=== PATIENT | female | born 1950 | race Caucasian/White ===

== ENCOUNTER 2016-05-15 08:26 | Observation (INO) | payer MEDICARE ==
[2016-05-15] MEDS ORDERED: LORazepam INJ* 2 MG/ML 1 ML VIAL ONE (08:44)
[2016-05-15] MEDS ORDERED: LORazepam INJ* 2 MG/ML 1 ML VIAL IV ONE (08:45)
[2016-05-15] MEDS: NS 0.9% 1000 ML* 1,000 ML IV SCH ×2 (08:57→17:49)
[2016-05-15 09:18] LABS: Hematocrit 44 % (35-47); Hemoglobin 15.3 g/dl (12.0-16.0); Mean Corpuscular HGB Conc 35 g/dl (31-36); Mean Corpuscular Hemoglobin 30 pg (27-31); Mean Corpuscular Volume 87 fL (80-97); Mean Platelet Volume 8 um3 (7.4-10.4); Red Blood Count 5.09 10^6/ul (4.0-5.4); Red Cell Distribution Width 14 % (10.5-15); White Blood Count 7.6 10^3/ul (3.5-10.8)
[2016-05-15 09:32] LABS: Ammonia 30 mol/L (16-53)
[2016-05-15 09:34] LABS: BUN/Creatinine Ratio 15.4 (8-20); C Reactive Protein 54.08 mg/L (< 5.00); EGFR Non-African American 91.8 (>60); Globulin 2.7 g/dL (2-4); Potassium 3.6 mmol/L (3.5-5.0); Total Bilirubin 0.4 mg/dL (0.2-1.0); Total Protein 6.7 g/dL (6.4-8.9)
[2016-05-15 09:36] LABS: Troponin I 0.02 ng/mL (<0.04)
[2016-05-15 09:37] LABS: B Type Natriuretic Peptide 20 pg/mL
[2016-05-15] MEDS ORDERED: Lacosamide TAB* 100 MG TAB PO ONE (10:05)
[2016-05-15] MEDS ORDERED: levETIRAcetam TAB* 500 MG PO ONE (10:05)
[2016-05-15] MEDS ORDERED: carBAMazepine TAB(*) 200 MG PO ONE (10:07)
[2016-05-15 10:15] LABS: TSH (Thyroid Stimulating Horm) 1.04 mcIU/mL (0.34-5.60)
[2016-05-15 10:38] LABS: Carbamazepine 4.5 mcg/mL (4.0-12.0)
[2016-05-15] MEDS ORDERED: LaCOSAMide TAB* 150 MG TAB PO ONE (11:00)
[2016-05-15 12:07] LABS: Urine Bacteria Absent (Absent); Urine Bilirubin Negative (Negative); Urine Glucose Negative (Negative); Urine Nitrite Negative (Negative)
[2016-05-15] MEDS ORDERED: Lacosamide TAB* 50 MG TAB PO ONE (12:55)
--- NOTE | 2016-05-15 13:46 | ED ---
Luis Alberto Tariq Adam, scribed for Maciej Ruelas MD on 05/15/16 at 0847 . Neurological HPI - HPI Summary HPI Summary: Patient is a 66 y/o female who presents to the [facility] with a seizure lasting 20- 30seconds per EMS. Pt was having a sz in the exam room (lasting approximately 15sec) at 0842. She has a Hx of seizures and is on Vimpat (per EMR). PMHx also includes anxiety and hypothyroidism. - History of Current Complaint Chief Complaint: EDSeizure Stated Complaint: SEIZURES Time Seen by Provider: 05/15/16 08:34 Hx Obtained From: EMS Hx From Patient Unobtainable Due To: Other - Seizure Onset/Duration: Sudden Onset, Started hours ago, Still Present Timing: Intermittent Episodes Lasting: - 15-30 seconds Onset Severity: Moderate Current Severity: Moderate Seizure Severity: Moderate Number of Seizures: 2 Neurological Deficit Location: Facial Seizure Character: Partial (Specify) - Facial twitching Aggravating: Unknown Alleviating: Spontanious Resolution - Allergy/Home Medications Allergies/Adverse Reactions: Allergies Allergy/AdvReac Type Severity Reaction Status Date / Time Amoxicillin Allergy Severe Swelling Verified 08/18/12 09:04 Of Face,Lips,& Throat Ampicillin Allergy Severe Swelling Verified 08/18/12 09:04 Of Face,Lips,& Throat Phenacemide [From Phenurone] Allergy Unknown Unknown Verified 08/18/12 09:05 Reaction Details PMH/Surg Hx/FS Hx/Imm Hx Endocrine/Hematology History: Reports: Hx Thyroid Disease Denies: Hx Diabetes Cardiovascular History: Denies: Hx Hypertension Respiratory History: Denies: Hx Asthma, Hx Chronic Obstructive Pulmonary Disease (COPD) GI History: Denies: Hx Ulcer Musculoskeletal History: Denies: Hx Osteoporosis - Surgical History Surgery Procedure, Year, and Place: Brain surgery after an accident 1974 Infectious Disease History: Denies: Hx Hepatitis, Hx Human Immunodeficiency Virus (HIV) - Family History Known Family History: Positive: Other - Breast CA - Social History Occupation: Retired Lives: [facility] Hx Substance Use: No Substance Use Type: Reports: None Review of Systems Constitutional: Negative Negative: Fever Neurological: Other - Seizures All Other Systems Reviewed And Are Negative: Yes Physical Exam Triage Information Reviewed: Yes Vital Signs On Initial Exam: Initial Vitals Resp 16 05/15/16 08:51 Vital Signs Reviewed: Yes Appearance: Positive: Well-Appearing, No Pain Distress Skin: Positive: Warm, Skin Color Reflects Adequate Perfusion, Dry Head/Face: Positive: Normal Head/Face Inspection Eyes: Positive: EOMI, KIERA ENT: Positive: Normal ENT inspection Neck: Positive: Supple, Nontender Respiratory/Lung Sounds: Positive: Clear to Auscultation, Breath Sounds Present Cardiovascular: Positive: RRR Abdomen Description: Positive: Nontender, Soft Bowel Sounds: Positive: Present Musculoskeletal: Positive: Normal, Strength/ROM Intact - Moves all extremities Neurological: Positive: Other - Seizure lasting 15 seconds: Facial twitching, eye and head deviation to the right. Post-ictal, confused. Psychiatric: Positive: Affect/Mood Appropriate Diagnostics - Vital Signs Vital Signs Temp Pulse Resp BP Pulse Ox 05/15/16 09:00 99.2 F 97 16 129/65 100 05/15/16 08:51 16 - Laboratory Lab Results: Lab Results 05/15/16 05/15/16 05/15/16 Range/Units 09:09 09:09 09:09 WBC 7.6 (3.5-10.8) 10^3/ul RBC 5.09 (4.0-5.4) 10^6/ul Hgb 15.3 (12.0-16.0) g/dl Hct 44 (35-47) % MCV 87 (80-97) fL MCH 30 (27-31) pg MCHC 35 (31-36) g/dl RDW 14 (10.5-15) % Plt Count 213 (150-450) 10^3/ul MPV 8 (7.4-10.4) um3 Neut % (Auto) 91.4 H (38-83) % Lymph % (Auto) 3.3 L (25-47) % [place] % (Auto) 5.0 (1-9) % Eos % (Auto) 0.1 (0-6) % Baso % (Auto) 0.2 (0-2) % Absolute Neuts (auto) 7.0 (1.5-7.7) 10^3/ul Absolute Lymphs (auto) 0.2 L (1.0-4.8) 10^3/ul Absolute Monos (auto) 0.4 (0-0.8) 10^3/ul Absolute Eos (auto) 0 (0-0.6) 10^3/ul Absolute Basos (auto) 0 (0-0.2) 10^3/ul Absolute Nucleated RBC 0 10^3/ul Nucleated RBC % 0 INR (Anticoag Therapy) 0.93 (0.89-1.11) APTT 30.9 (26.0-36.3) seconds Sodium 127 L (133-145) mmol/L Potassium 3.6 (3.5-5.0) mmol/L Chloride 93 L (101-111) mmol/L Carbon Dioxide 25 (22-32) mmol/L Anion Gap 9 (2-11) mmol/L BUN 10 (6-24) mg/dL Creatinine 0.65 (0.51-0.95) mg/dL Est GFR ( Amer) 118.0 (>60) Est GFR (Non-Af Amer) 91.8 (>60) BUN/Creatinine Ratio 15.4 (8-20) Glucose 117 H (70-100) mg/dL Lactic Acid (0.5-2.0) mmol/L Calcium 9.0 (8.6-10.3) mg/dL Magnesium 2.0 (1.9-2.7) mg/dL Total Bilirubin 0.40 (0.2-1.0) mg/dL AST 15 (13-39) U/L ALT 13 (7-52) U/L Alkaline Phosphatase 156 H (34-104) U/L Ammonia (16-53) mol/L Total Creatine Kinase 53 (10-223) U/L CK-MB (CK-2) 1.4 (0.6-6.3) ng/mL Troponin I 0.02 (<0.04) ng/mL C-Reactive Protein 54.08 H (< 5.00) mg/L B-Natriuretic Peptide ( - 100) pg/mL Total Protein 6.7 (6.4-8.9) g/dL Albumin 4.0 (3.2-5.2) g/dL Globulin 2.7 (2-4) g/dL Albumin/Globulin Ratio 1.5 (1-3) Lipase 13 (11.0-82.0) U/L TSH 1.04 (0.34-5.60) mcIU/mL Urine Color Urine Appearance Urine pH (5-9) Ur Specific [place] (1.010-1.030) Urine Protein (Negative) Urine Ketones (Negative) Urine Blood (Negative) Urine Nitrate (Negative) Urine Bilirubin (Negative) Urine Urobilinogen (Negative) Ur Leukocyte Esterase (Negative) Urine WBC (Auto) (Absent) Urine RBC (Auto) (Absent) Ur Squamous Epith Cells (Absent) Urine Bacteria (Absent) Hyaline Casts (Absent) Urine Glucose (Negative) Urine Ascorbic Acid (Negative) Carbamazepine 4.5 (4.0-12.0) mcg/mL 05/15/16 05/15/16 05/15/16 Range/Units 09:09 09:09 11:54 WBC (3.5-10.8) 10^3/ul RBC (4.0-5.4) 10^6/ul Hgb (12.0-16.0) g/dl Hct (35-47) % MCV (80-97) fL MCH (27-31) pg MCHC (31-36) g/dl RDW (10.5-15) % Plt Count (150-450) 10^3/ul MPV (7.4-10.4) um3 Neut % (Auto) (38-83) % Lymph % (Auto) (25-47) % [place] % (Auto) (1-9) % Eos % (Auto) (0-6) % Baso % (Auto) (0-2) % Absolute Neuts (auto) (1.5-7.7) 10^3/ul Absolute Lymphs (auto) (1.0-4.8) 10^3/ul Absolute Monos (auto) (0-0.8) 10^3/ul Absolute Eos (auto) (0-0.6) 10^3/ul Absolute Basos (auto) (0-0.2) 10^3/ul Absolute Nucleated RBC 10^3/ul Nucleated RBC % INR (Anticoag Therapy) (0.89-1.11) APTT (26.0-36.3) seconds Sodium (133-145) mmol/L Potassium (3.5-5.0) mmol/L Chloride (101-111) mmol/L Carbon Dioxide (22-32) mmol/L Anion Gap (2-11) mmol/L BUN (6-24) mg/dL Creatinine (0.51-0.95) mg/dL Est GFR ( Amer) (>60) Est GFR (Non-Af Amer) (>60) BUN/Creatinine Ratio (8-20) Glucose (70-100) mg/dL Lactic Acid 3.7 H* (0.5-2.0) mmol/L Calcium (8.6-10.3) mg/dL Magnesium (1.9-2.7) mg/dL Total Bilirubin (0.2-1.0) mg/dL AST (13-39) U/L ALT (7-52) U/L Alkaline Phosphatase (34-104) U/L Ammonia 30 (16-53) mol/L Total Creatine Kinase (10-223) U/L CK-MB (CK-2) (0.6-6.3) ng/mL Troponin I (<0.04) ng/mL C-Reactive Protein (< 5.00) mg/L B-Natriuretic Peptide 20 ( - 100) pg/mL Total Protein (6.4-8.9) g/dL Albumin (3.2-5.2) g/dL Globulin (2-4) g/dL Albumin/Globulin Ratio (1-3) Lipase (11.0-82.0) U/L TSH (0.34-5.60) mcIU/mL Urine Color Yellow Urine Appearance Cloudy Urine pH 6.0 (5-9) Ur Specific [place] 1.020 (1.010-1.030) Urine Protein 1+(30 mg/dl) H (Negative) Urine Ketones Negative (Negative) Urine Blood Negative (Negative) Urine Nitrate Negative (Negative) Urine Bilirubin Negative (Negative) Urine Urobilinogen Negative (Negative) Ur Leukocyte Esterase Negative (Negative) Urine WBC (Auto) Trace(0-5/hpf) (Absent) Urine RBC (Auto) 1+(3-5/hpf) H (Absent) Ur Squamous Epith Cells Present H (Absent) Urine Bacteria Absent (Absent) Hyaline Casts Present H (Absent) Urine Glucose Negative (Negative) Urine Ascorbic Acid * H (Negative) Carbamazepine (4.0-12.0) mcg/mL Result Diagrams: 05/15/16 09:09 05/15/16 09:09 Lab Statement: Any lab studies that have been ordered have been reviewed, and results considered in the medical decision making process. - EKG 08:32 Cardiac Rate: NL - [address] Segment: Normal Ectopy: None - Additional Comments Diagnostic Additional Comments: Troponin I - 0.02 Lactic Acid - 3.7 Course/Dx - Course Assessment/Plan: patient had one seizure at dinner, 05/14/16. Today she had a seizure when medications were being dispensed (she did not get her am meds), another seizure in the ambulance and a third in the ED. In the ED, She got ativan 1mg iv,vimpat 150mg po, keppra 1000mg po and carbamazepine 200mg po. After discussion with Dr Lee, the vimpat will be increased to 100mg po bid to be started tomorrow am, 05/16/16. She received another dose of 50mg of po vimpat in the ED. This was all discussed with the patient and her son. Discharge home stable. - Diagnoses Provider Diagnoses: Seizure Discharge - Discharge Plan Condition: Stable Disposition: HOME Prescriptions: Lacosamide TAB* [Vimpat TAB*] 100 mg PO BID #60 tab MDD 200 Patient Education Materials: Epilepsy (ED) Referrals: Iain Gaytan MD [Primary Care Provider] - Additional Instructions: INCREASE YOUR DOSE OF VIMPAT TO 100MG TWICE A DAY. FOLLOW UP WITH YOUR NEUROLOGIST. RETURN TO THE EMERGENCY DEPARTMENT FOR ANY WORSENING OF YOUR CONDITION OR QUESTIONS OR CONCERNS. The documentation as recorded by the Luis Alberto hernandez Adam accurately reflects the service I personally performed and the decisions made by me, Maciej Ruelas MD.
--- NOTE | 2016-05-15 14:12 | ED ---
Progress - Progress Note Progress Note: AFTER DISCUSSION WITH SON, THERE IS A CONCERN OF PATIENT'S SAFETY AT HER INDEPENDENT LIVING. ADMIT HOSPITALIST STABLE. Course/Dx - Diagnoses Provider Diagnoses: Seizure
[2016-05-15] MEDS ORDERED: NS 0.9% 1000 ML* 1,000 ML IV ONE (14:17)
[2016-05-15] MEDS ORDERED: Ondansetron INJ* 2 MG/ML VIAL IV PRN (14:17)
[2016-05-15] MEDS ORDERED: Benzonatate CAP* 100 MG PO PRN (14:19)
[2016-05-15] MEDS ORDERED: Loperamide CAP* 2 MG PO PRN (14:19)
[2016-05-15] MEDS ORDERED: Acetaminophen TAB* 325 MG PO PRN (14:19)
[2016-05-15] MEDS ORDERED: levETIRAcetam TAB* 500 MG PO SCH (18:00)
[2016-05-15] MEDS: carBAMazepine ER TAB(*) 200 MG PO SCH (21:55)
[2016-05-15] MEDS: Lacosamide TAB* 100 MG TAB PO SCH (21:55)
--- NOTE | 2016-05-15 23:06 | HP ---
HISTORY AND PHYSICAL: DATE OF ADMISSION: 05/15/16 PRIMARY CARE PROVIDER: Iain Gaytan MD CONSULTING NEUROLOGISTS: 1. Baldev Lee MD 2. Oneida Guy MD CHIEF COMPLAINT: Recurrent seizures. HISTORY OF PRESENT ILLNESS: Ms. Cardoza is a pleasant 66-year-old woman who came to the [facility] with several seizures lasting 20 to 30 seconds. The patient continued to have a seizure in the ambulance and then another seizure in the emergency room. The patient has a history of seizures for many years. She is under the care of Dr. Oneida Guy. I believe there was a medication change with specific decreased in Vimpat to 150 mg by mouth once daily. The patient is also on Tegretol and Keppra. I believe her Keppra dose is 2500 mg daily with 2 doses daily; one of 1000 mg and the other one of 1500 mg. Her Tegretol is 200 mg by mouth [address] Maciej Ruelas, the ED provider, spoke with Dr. Lee over the telephone, who increased her Vimpat. The patient did receive Ativan in the emergency room. The patient was recommended for discharge , but there was concern by the patient's brother, who was concerned that her independent living situation at [place] was insufficient with respect to monitoring. The hospital service was contacted for observation and we agreed to observe her overnight with seizure precautions to ensure that she is stable for being discharged to an independent setting. PAST MEDICAL HISTORY: 1. Anxiety. 2. Hypothyroidism. OUTPATIENT MEDICATIONS: 1. Multivitamin 1 tablet by mouth twice daily. 2. Acetaminophen 650 mg by mouth every 4 hours as needed for pain/fevers. 3. Tessalon Perles 100 mg by mouth 3 times daily as needed. 4. Vimpat (lacosamide) 150 mg by mouth daily (A RECENT DECREASE) 5. Levothyroxine 75 mcg daily. 6. Loperamide 2 tabs twice daily as needed for loose stools. 7. Zoloft (sertraline) 50 mg by mouth daily. 8. Tegretol XR 200 mg by mouth 3 times daily. 9. Keppra (levetiracetam) 1000 mg by mouth in the morning and 1500 mg by mouth in the evening. ALLERGIES: AMOXICILLIN, AMPICILLIN, and PHENACEMIDE. FAMILY HISTORY: Reviewed, but noncontributory based on the current presentation. REVIEW OF SYSTEMS: Fourteen-system review of systems was accomplished at the bedside without pertinent positives other than what is mentioned in the HPI, all other systems were negative. PHYSICAL EXAMINATION GENERAL APPEARANCE: An elderly woman, appears stated age, in no apparent distress. She is slightly lethargic relative to her baseline. This is as per the , although she has answered questions appropriately. VITAL SIGNS: On admission, temperature 99.2 Fahrenheit, pulse 97, respirations rate 16, oxygen saturation 100% on room air, and blood pressure 129/65. HEENT: Oropharynx is clear. Mucous membranes are moist. NECK: Supple. No bruits appreciated. Midline trachea. Normal thyroid. CHEST: Clear breath sounds anteriorly and posteriorly. HEART: Regular rate and rhythm. No murmurs, rubs, or gallops. ABDOMEN: Soft and nontender. NEURO: No focal weakness or sensory loss. PSYCH: Normal affect. No acute anxiety or depression noted in my conversion. SKIN: Dry and intact. LYMPHS: No adenopathy appreciated. ADMISSION DATA: CBC was normal. INR was unremarkable. Blood chemistry is significant for hyponatremia with a sodium of 127, potassium 3.6, chloride 93, bicarb 25, BUN 10, creatinine 0.6, glucose 117, and lactic acid 3.7 (post seizure). Calcium and magnesium are normal as are the LFTs except for modestly elevated alk phos of 156, ammonia of 30, and total CK 53. Troponin 0.02. CRP elevated at 54. Urinalysis abnormal, but does not suggest the UTI with urine proteins 1+ by dip, urine rbc's 1+ by microscopy, and hyaline casts present as well as urine ascorbic acid present. Toxicology reveals a carbamazepine level of 4.5. IMPRESSION: Ms. Cardoza is a 66-year-old woman who has longstanding seizures, had her seizure medication adjusted with the occurrence of more frequent seizures than is customary for her. Her seizure medication regimen was adjusted by [employer] consultant, Dr. Baldev Lee, but the patient is in a tenuous living situation and it would be proper to observe the patient for resolution of her seizures with this adjusted regimen before discharge. Accordingly, the patient is being placed on observation status. She will be kept on seizure precautions and we will continue all her medications as detailed above and she will be reevaluated in the morning with the intention of discharge at this point. TIME SPENT: Total time taken to admit Mr. Cardoza was 65 minutes, greater than half the time was spent going over the admission history and physical with the patient and discussing the plan of care with the patient's brother. CC: Dr. Gaytan; Dr. Lee; Dr. Guy * [id number]/[facility] #: [id number] MTDD
[2016-05-16] MEDS: NS 0.9% 1000 ML* 1,000 ML IV SCH (04:26)
[2016-05-16] MEDS ORDERED: Levothyroxine TAB* 75 MCG TAB PO SCH (06:00)
[2016-05-16 06:27] LABS: Hematocrit 39 % (35-47); Hemoglobin 13.3 g/dl (12.0-16.0); Mean Corpuscular HGB Conc 34 g/dl (31-36); Mean Corpuscular Hemoglobin 30 pg (27-31); Mean Corpuscular Volume 88 fL (80-97); Mean Platelet Volume 8 um3 (7.4-10.4); Red Blood Count 4.47 10^6/ul (4.0-5.4); Red Cell Distribution Width 14 % (10.5-15); White Blood Count 4.7 10^3/ul (3.5-10.8)
[2016-05-16 07:00] LABS: BUN/Creatinine Ratio 13.3 (8-20); EGFR African American 180.4 (>60); EGFR Non-African American 140.3 (>60); Potassium 3.6 mmol/L (3.5-5.0)
[2016-05-16] MEDS ORDERED: LaCOSAMide TAB* 150 MG TAB PO SCH (09:00)
[2016-05-16] MEDS ORDERED: levETIRAcetam TAB* 500 MG PO SCH (09:00)
[2016-05-16] MEDS ORDERED: Sertraline* 50 MG TAB PO SCH (09:00)
[2016-05-16] MEDS: carBAMazepine ER TAB(*) 200 MG PO SCH (09:44)
[2016-05-16] MEDS: Lacosamide TAB* 100 MG TAB PO SCH (09:45)
[2016-05-16 10:46] VITALS: BP 120/63
[2016-05-16 18:03] LABS: Levetiracetam 2.4 mcg/mL
--- NOTE | 2016-05-17 13:02 | DS ---
DISCHARGE SUMMARY: DATE OF ADMISSION: 05/15/16 DATE OF DISCHARGE: 05/16/16 PRIMARY CARE: Iain Gaytan MD. STATUS DURING HOSPITALIZATION: Observation. DISCHARGE DIAGNOSIS: Recurrent seizure secondary to medication regimen adjustment with church of effective regimen and no seizures overnight. DISCHARGE MEDICATIONS: 1. Multivitamin 1 tablet by mouth twice daily. 2. Acetaminophen 650 mg by mouth every 4 hours as needed for pain/fevers. 3. Tessalon Perles 100 mg by mouth 3 times daily as needed. 4. Vimpat (lacosamide) 200 mg by mouth daily (100 b.i.d.) 5. Levothyroxine 75 mcg daily. 6. Loperamide 2 tabs twice daily as needed for loose stools. 7. Zoloft/sertraline 50 mg by mouth daily. 8. Tegretol XR 200 mg by mouth 3 times daily. 9. Keppra (levetiracetam) 1000 mg by mouth in the morning and 1500 mg by mouth in the evening. HISTORY OF PRESENT ILLNESS AND HOSPITAL COURSE: Please see my H and P describing how the patient is a 66-year-old woman with known epilepsy who had an increasing frequency of seizures in response to a decrease (this is the thought) in her Vimpat. The patient was advised by neurology to increase her Vimpat, but there was concerned about the patient's stability and so she was placed on observation status overnight to ensure she was not having continued frequent seizures as she did on presentation. The patient indeed had no seizures overnight and was stable for discharge in the morning on the discharge regimen above. This was communicated with the patient's brother and she is being discharged back to [place]. TIME SPENT: Total time taken to discharge Ms. Cardoza was 30 minutes, greater than half the time was spent going over the discharge instructions. The patient was given return to ED instructions, but if she has frequent seizure reoccurrences she should contact her neurologist or come directly back to the emergency room. CONDITION AT DISCHARGE: Stable. She is to follow up next week with Dr. Guy or associate at [facility] and also with Dr. Gaytan as per her usual schedule. CC: Dr. Gaytan * [id number]/[facility] #: [id number] [facility]
[2016-05-17 21:06] LABS: Lacosamide 0.8 mcg/mL (1.0 - 10.0)
== END 2016-05-16 10:50 | disposition home or self-care (01) ==
LOC: ED 08:26 → MED 14:05
PROVIDERS: ADMIT Internal Medicine; ATTEND Internal Medicine
DX: G40.509 Epileptic seizures related to external causes, not intractable, without status epilepticus (principal); G40.909 Epilepsy, unspecified, not intractable, without status epilepticus; E03.9 Hypothyroidism, unspecified; F41.9 Anxiety disorder, unspecified; Z88.1 Allergy status to other antibiotic agents; Z23 Encounter for immunization
CPT/HCPCS: 36415; 80048; 80053; 80156; 80177; 80299; 81003; 81015; 82140; 82550; 82553; 83605; 83690; 83735; 83880; 84443; 84484; 85025; 85610; 85730; 86140; 93005; 96374; 96375; 99283; 99406; A9270-GY; G0378; J2060

== ENCOUNTER 2017-03-08 14:26 | Emergency (ER) | payer MEDICARE ==
[2017-03-08] MEDS ORDERED: Tetan/Diph/Pertus SYR(Tdap)* 0.5 ML SYR(BOOSTRIX) use SYR IM ONE (14:52)
--- NOTE | 2017-03-08 15:32 | RAD ---
INDICATION: Head injury. COMPARISON: Comparison is made with a prior CT of the brain from June 09, 2016. TECHNIQUE: Contiguous axial sections of the brain were obtained from the skull base to the vertex without contrast. FINDINGS: The ventricles, cisterns and sulci are enlarged consistent with diffuse atrophy. There is a focal area of encephalomalacia present in the left frontal and temporal lobes which is unchanged from the prior study. No other focal abnormality is or mass effect are seen. There is no evidence for hemorrhage. The patient is status post left frontal craniotomy. There is focal soft tissue swelling and air within the soft tissues anterior to the right frontal bone. There appears to be a small hematoma present measuring 4.0 x 0.6 cm in size. No fracture is seen. The visualized portion of the paranasal sinuses and mastoid air cells appear clear. IMPRESSION: 1. NO EVIDENCE FOR ACUTE INTRACRANIAL ABNORMALITY. 2. SMALL HEMATOMA ANTERIOR TO THE RIGHT FRONTAL BONE. NO FRACTURE IS SEEN. THERE IS AIR PRESENT SUGGESTIVE OF A LACERATION TYPE INJURY. 3. POSTSURGICAL CHANGES AND LEFT FRONTAL AND TEMPORAL ENCEPHALOMALACIA, UNCHANGED.
--- NOTE | 2017-03-08 15:38 | RAD ---
INDICATION: Facial trauma. COMPARISON: There are no prior studies available for comparison. TECHNIQUE: Contiguous axial sections of the axial images of the facial bones were obtained and reconstructed in the coronal and sagittal planes. FINDINGS: Soft tissue swelling is noted anterior to the right frontal bone and orbit. There is a small hematoma present anterior to the frontal bone measuring 4.6 x 0.7 cm in size. The pierce of the orbits and maxillary sinuses appear intact. The zygomatic arches appear intact. There is no evidence for a fracture of the mandible. The nasal bones appear intact. There is mild to moderate deviation of the nasal septum convex toward the left along its superior portion and toward the right along its inferior portion. The pterygoid plates appear intact. The paranasal sinuses appear clear. IMPRESSION: THERE IS SOFT TISSUE SWELLING ANTERIOR TO THE RIGHT ORBIT AND FRONTAL BONE. THERE IS A SMALL HEMATOMA ANTERIOR TO THE FRONTAL BONE. NO FRACTURE IS SEEN.
[2017-03-08 18:59] VITALS: BP 137/59
--- NOTE | 2017-03-13 18:35 | ED ---
Krystin Tariq Alfonso, scribed for Amado Leyva MD on 03/08/17 at 1449 . Adult Trauma - HPI Summary HPI Summary: This patient is a 67 year old F BIBA to [facility] s/p a mechanical fall earlier today while on the sidewalk about to smoke a cigarette. The patient rates the pain 8/10 in severity. Symptoms aggravated by nothing. Patient reports head trauma (wound bandaged by EMS). Patient denies LOC, and pain including neck pain , LE pain, hip pain, abdominal pain, CP, wrist pain, and shoulder pain. - History of Current Complaint Chief Complaint: EDHeadInjury Stated Complaint: FALL HEAD LAC Time Seen by Provider: 03/08/17 14:39 Hx Obtained From: Patient Mechanism of Injury: Fall Loss of Consciousness: no loss of consciousness Onset/Duration: Traumatic Onset of Pain: Post Accident Current Severity: Moderate Pain Intensity: 8 Pain Scale Used: 0-10 Numeric Location: Head Aggravating Factor(s): Nothing Associated Signs & Symptoms: Positive: Other: - head trauma (wound bandaged by EMS). Patient denies LOC, and pain including neck pain, LE pain, hip pain, abdominal pain, CP, wrist pain, and shoulder pain. - Additional Pertinent History Primary Care Physician: [id number] - Allergy/Home Medications Allergies/Adverse Reactions: Allergies Allergy/AdvReac Type Severity Reaction Status Date / Time Amoxicillin Allergy Severe Swelling Verified 08/18/12 09:04 Of Face,Lips,& Throat Ampicillin Allergy Severe Swelling Verified 08/18/12 09:04 Of Face,Lips,& Throat Phenacemide [From Phenurone] Allergy Unknown Unknown Verified 08/18/12 09:05 Reaction Details PMH/Surg Hx/FS Hx/Imm Hx Endocrine/Hematology History: Reports: Hx Thyroid Disease Denies: Hx Diabetes Cardiovascular History: Denies: Hx Hypertension Respiratory History: Denies: Hx Asthma, Hx Chronic Obstructive Pulmonary Disease (COPD) GI History: Denies: Hx Ulcer Musculoskeletal History: Denies: Hx Osteoporosis Sensory History: Reports: Hx Contacts or Glasses Opthamlomology History: Reports: Hx Contacts or Glasses Neurological History: Reports: Hx Seizures - Surgical History Surgery Procedure, Year, and Place: Brain surgery after an accident 1974 Infectious Disease History: No Infectious Disease History: Denies: Hx Hepatitis, Hx Human Immunodeficiency Virus (HIV), Traveled Outside the [place] in Last 30 Days - Family History Known Family History: Positive: Other - Breast CA - Social History Alcohol Use: None Hx Substance Use: No Substance Use Type: Reports: None Hx Tobacco Use: Yes Smoking Status (MU): Light Every Day Tobacco Smoker Type: Cigarettes Have You Smoked in the Last Year: Yes Review of Systems Negative: Fever Positive: Other - fall; negative Neurological: Other - head trauma (wound bandaged by EMS); negative LOC All Other Systems Reviewed And Are Negative: Yes Physical Exam - Summary Physical Exam Summary: VITAL SIGNS: Reviewed. GENERAL: Patient is a well-developed and nourished female who is lying comfortable in the stretcher. Patient is not in any acute respiratory distress. HEAD AND FACE: No skull depressions. No sinus tenderness. Swelling above the right eyebrow. Contused tissue. 3 cm linear laceration at right forehead. 3 mm linear laceration at right forehead. EYES: PERRLA, EOMI x 2, No injected conjunctiva, no nystagmus. EARS: Hearing grossly intact. Ear canals and tympanic membranes are within normal limits. MOUTH: Oropharynx within normal limits. NECK: Supple, trachea is midline, no adenopathy, no JVD, no carotid bruit, no c- spine tenderness, neck with full ROM. CHEST: Symmetric, no tenderness at palpation LUNGS: Clear to auscultation bilaterally. No wheezing or crackles. CVS: Regular rate and rhythm, S1 and S2 present, no murmurs or gallops appreciated. ABDOMEN: Soft, non-tender. No signs of distention. No rebound no guarding, and no masses palpated. Bowel sounds are normal. EXTREMITIES: FROM in all major joints, no edema, no cyanosis or clubbing. NEURO: Alert and oriented x 3. No acute neurological deficits. Speech is normal and follows commands. SKIN: Dry and warm Triage Information Reviewed: Yes Vital Signs On Initial Exam: Initial Vitals Temp Pulse Resp BP Pulse Ox 98.1 F 71 18 140/65 99 03/08/17 14:31 03/08/17 14:31 03/08/17 14:31 03/08/17 14:31 03/08/17 14:31 Vital Signs Reviewed: Yes - Garry Coma Scale Best Eye Response: 4 - Spontaneous Best Motor Response: 6 - Obeys Commands Best Verbal Response: 5 - Oriented Procedures - Laceration/Wound Repair 1 Location: head - Right forehead Description: Linear Anesthesia: Local, 1.0%, Lido Length, Depth and Shape: 3 cm Laceration/Wound Explored: clean Closure: Single Layer Suture Type: Other - 4-0 Polypropylene Number of Sutures: 7 2 Location: head - Right forehead Description: Linear Anesthesia: Local, 1.0%, Lido Length, Depth and Shape: 3 mm Laceration/Wound Explored: clean Closure: Single Layer Suture Type: Other - 4-0 Polypropylene Number of Sutures: 1 Diagnostics - Vital Signs Vital Signs Temp Pulse Resp BP Pulse Ox 03/08/17 14:31 98.1 F 71 18 140/65 99 - Laboratory Lab Statement: Any lab studies that have been ordered have been reviewed, and results considered in the medical decision making process. - CT Brain CT Interpretation Completed By: Radiologist - 1. NO EVIDENCE FOR ACUTE INTRACRANIAL ABNORMALITY. 2. SMALL HEMATOMA ANTERIOR TO THE RIGHT FRONTAL BONE. NO FRACTURE IS SEEN. THERE IS AIR PRESENT SUGGESTIVE OF A LACERATION TYPE INJURY. 3. POSTSURGICAL CHANGES AND LEFT FRONTAL AND TEMPORAL ENCEPHALOMALACIA, UNCHANGED. ED physician has reviewed this radiology report and agrees. Maxillofacial CT Interpretation Completed By: Radiologist - THERE IS SOFT TISSUE SWELLING ANTERIOR TO THE RIGHT ORBIT AND FRONTAL BONE. THERE IS A SMALL HEMATOMA ANTERIOR TO THE FRONTAL BONE. NO FRACTURE IS SEEN. ED physician has reviewed this radiology report and agrees. Adult Trauma Course/Dx - Course Assessment/Plan: This patient is a 67 year old F [facility] a mechanical fall earlier today while on the sidewalk about to smoke a cigarette. The patient rates the pain 8/10 in severity. Symptoms aggravated by nothing. Patient reports head trauma (wound bandaged by EMS). Patient denies LOC, and pain including neck pain, LE pain, hip pain, abdominal pain, CP, wrist pain, and shoulder pain. CT Brain reveals, per radiologist, 1. NO EVIDENCE FOR ACUTE INTRACRANIAL ABNORMALITY. 2. SMALL HEMATOMA ANTERIOR TO THE RIGHT FRONTAL BONE. NO FRACTURE IS SEEN. THERE IS AIR PRESENT SUGGESTIVE OF A LACERATION TYPE INJURY. 3. POSTSURGICAL CHANGES AND LEFT FRONTAL AND TEMPORAL ENCEPHALOMALACIA, UNCHANGED. ED physician has reviewed this radiology report and agrees. CT Maxillofacial reveals, per radiologist, THERE IS SOFT TISSUE SWELLING ANTERIOR TO THE RIGHT ORBIT AND FRONTAL BONE. THERE IS A SMALL HEMATOMA ANTERIOR TO THE FRONTAL BONE. NO FRACTURE IS SEEN. ED physician has reviewed this radiology report and agrees. Lacerations repaired as described in the procedure note. Patient will be discharged with follow up from PCP. The patient is agreeable with this plan. The patient is hemodynamically stable, alert and oriented x3. - Diagnoses Provider Diagnoses: Head contusion, Laceration, Accidental fall Discharge - Discharge Plan Condition: Stable Disposition: HOME Patient Education Materials: Care For Your Stitches (ED), Contusion in Adults ( ED), Fall Prevention (ED), Facial Laceration (ED) Referrals: Iain Gaytan MD [Primary Care Provider] - 3 Days Additional Instructions: RETURN TO THE EMERGENCY DEPARTMENT OR [facility] IN 10 DAYS TO HAVE YOUR SUTURES REMOVED. RETURN TO THE EMERGENCY DEPARTMENT FOR CHANGING OR WORSENING SYMPTOMS. The documentation as recorded by the Krystin hernandez Alfonso accurately reflects the service I personally performed and the decisions made by Gordon loja Walter, MD.
== END 2017-03-08 19:01 | disposition home or self-care (01) ==
LOC: ED 14:26
DX: S01.91XA Laceration without foreign body of unspecified part of head, initial encounter (principal); W19.XXXA Unspecified fall, initial encounter; Y93.9 Activity, unspecified; Y92.9 Unspecified place or not applicable; F17.210 Nicotine dependence, cigarettes, uncomplicated
CPT/HCPCS: 12002; 70450; 70486; 90471; 90715; 99282

== ENCOUNTER 2017-03-18 13:32 | Emergency (ER) | payer MEDICARE ==
[2017-03-18 13:38] VITALS: BP 136/61
--- NOTE | 2017-03-18 14:26 | RAD ---
HISTORY: Trauma, history of brain surgery COMPARISONS: March 08, 2017 TECHNIQUE: Multiple contiguous axial CT scans were obtained of the head without intravenous contrast. FINDINGS: HEMORRHAGE/INFARCT: There is no hemorrhage or acute infarct. MASSES/SHIFT: There is no mass or shift. EXTRA-AXIAL SPACES: There are no extra-axial fluid collections. SULCI AND VENTRICLES: The sulci and ventricles are normal in size and position for the patient's stated age. CEREBRUM: There is encephalomalacia of the left inferior frontal lobe, temporal lobe, and inferior parietal lobe, stable. BRAINSTEM: There are no focal parenchymal abnormalities. CEREBELLUM: There are no focal parenchymal abnormalities. VESSELS: The vessels are grossly normal. PARANASAL SINUSES: The paranasal sinuses are clear. ORBITS: The orbits are unremarkable. BONES AND SOFT TISSUE: There is post surgical change to the skull. There is expansion of the diploic space which can be seen in the setting of chronic anticonvulsant therapy OTHER: None IMPRESSION: STABLE ENCEPHALOMALACIA WITH POSTSURGICAL CHANGE TO THE SKULL. NO ACUTE INTRACRANIAL PATHOLOGY.
--- NOTE | 2017-03-18 14:32 | RAD ---
INDICATION: Fall landing on face. Bloody nose. Bruising under bilateral eyes. COMPARISON: March 08, 2017 CT. TECHNIQUE: Multidetector CT base of the skull through mandible without contrast. Multiplanar reformation. REPORT: Artifact from dental amalgam. Soft tissue swelling and subcutaneous emphysema over the bridge of the nose. Mild subcutaneous edema over the malar eminences. No loculated soft tissue plane hematoma evident. Mildly comminuted and posteriorly impacted nasal bone fractures new compared with the recent prior exam. The orbital and maxillary sinus margins, zygomatic arches, lamina papyracea, base of the maxilla, and pterygoid plates are intact. The mandible is intact. Normal temporal mandibular joint alignment. Unremarkable orbital contents. IMPRESSION: Mildly comminuted and posteriorly impacted nasal bone fractures new compared with the recent prior exam. Overlying soft tissue swelling and subcutaneous emphysema.
[2017-03-18] MEDS ORDERED: DOXYcycline CAP(*) 100 MG PO ONE ×2 (14:44→14:54)
--- NOTE | 2017-03-18 14:59 | ED ---
Throat Pain/Nasal Congestion - HPI Summary HPI Summary: Patient presents to the ED with CC of facial trauma after tripping and falling prior to arrival. Obvious signs of trauma to the face. Most notably right maxilla swelling and nasal bone deformity. She denies pain. She denies visual changes or other pain. Ecchymosois to the right maxilla and infraorbitally. Denies difficulty breathing. States she has had a minimal amount of blood loss. She lives at an independent living facility. History of brain surgery and seizures. She states this was not a seizure and recalls everything before and after the incident. Denies any other complaints. - History of Current Complaint Chief Complaint: EDFacialInjury Time Seen by Provider: 03/18/17 13:43 Hx Obtained From: Patient Onset/Duration: Sudden Onset Severity: Moderate Associated Signs And Symptoms: Positive: Negative - Epiglottits Risk Factors Epiglottis Risk Factors: Negative - Allergies/Home Medications Allergies/Adverse Reactions: Allergies Allergy/AdvReac Type Severity Reaction Status Date / Time Amoxicillin Allergy Severe Swelling Verified 08/18/12 09:04 Of Face,Lips,& Throat Ampicillin Allergy Severe Swelling Verified 08/18/12 09:04 Of Face,Lips,& Throat Phenacemide [From Phenurone] Allergy Unknown Unknown Verified 08/18/12 09:05 Reaction Details PMH/Surg Hx/FS Hx/Imm Hx Previously Healthy: Yes Endocrine/Hematology History: Reports: Hx Thyroid Disease Denies: Hx Anticoagulant Therapy, Hx Diabetes Cardiovascular History: Denies: Hx Hypertension Respiratory History: Denies: Hx Asthma, Hx Chronic Obstructive Pulmonary Disease (COPD) GI History: Denies: Hx Ulcer Musculoskeletal History: Denies: Hx Osteoporosis Sensory History: Reports: Hx Contacts or Glasses Opthamlomology History: Reports: Hx Contacts or Glasses Neurological History: Reports: Hx Seizures - Surgical History Surgery Procedure, Year, and Place: Brain surgery after an accident 1974 - Immunization History Date of Tetanus Vaccine: UTD Date of Influenza Vaccine: UTD Hx Pertussis Vaccination: No Immunizations Up to Date: Unable to Obtain/Confirm Infectious Disease History: No Infectious Disease History: Denies: Hx Hepatitis, Hx Human Immunodeficiency Virus (HIV), Traveled Outside the [place] in Last 30 Days - Family History Known Family History: Positive: Other - Breast CA - Social History Occupation: Unemployed, Disabled Lives: Assisted Living Alcohol Use: None Hx Substance Use: No Substance Use Type: Reports: None Hx Tobacco Use: Yes Smoking Status (MU): Light Every Day Tobacco Smoker Type: Cigarettes Have You Smoked in the Last Year: Yes Review of Systems Constitutional: Negative Negative: Fever, Chills, Fatigue Eyes: Negative Positive: Epistaxis Cardiovascular: Negative Respiratory: Negative Genitourinary: Negative Positive: no symptoms reported, see HPI Musculoskeletal: Negative Positive: Other - ecchymosos infraorbitally over the right eye Neurological: Negative Psychological: Normal All Other Systems Reviewed And Are Negative: Yes Physical Exam Triage Information Reviewed: Yes Vital Signs On Initial Exam: Initial Vitals Temp Pulse Resp BP Pulse Ox 96.9 F 86 15 136/61 96 03/18/17 13:36 03/18/17 13:36 03/18/17 13:36 03/18/17 13:36 03/18/17 13:36 Vital Signs Reviewed: Yes Appearance: Positive: Well-Appearing, Well-Nourished Skin: Positive: Warm, Skin Color Reflects Adequate Perfusion, Other - ecchymosos infraorbitally over the right eye Head/Face: Positive: Other - obvious facial trauma - ecchymosos infraorbitally over the right eye. swelling to the right maxilla Eyes: Positive: EOMI, KIERA, Conjunctiva Clear ENT: Positive: Sinus tenderness, Uvula midline. Negative: Dental tenderness Neck: Positive: Supple, Nontender, No Lymphadenopathy Respiratory/Lung Sounds: Positive: Clear to Auscultation, Breath Sounds Present Cardiovascular: Positive: Normal, RRR, Pulses are Symmetrical in both Upper and Lower Extremities Musculoskeletal: Positive: Strength/ROM Intact Neurological: Positive: Normal, Sensory/Motor Intact, Alert, Oriented to Person Place, Time, Speech Normal Psychiatric: Positive: Affect/Mood Appropriate - Garry Coma Scale Best Eye Response: 4 - Spontaneous Best Motor Response: 6 - Obeys Commands Best Verbal Response: 5 - Oriented Coma Scale Total: 15 Diagnostics - Vital Signs Vital Signs Temp Pulse Resp BP Pulse Ox 03/18/17 13:36 96.9 F 86 15 136/61 96 - Laboratory Lab Statement: Any lab studies that have been ordered have been reviewed, and results considered in the medical decision making process. EENT Course/Dx - Course Course Of Treatment: No obvious perforation with teardrop pupil, vitreous extrusion, or protruding intraocular foreign body. No orbital compartment syndrome, hyphema, subconjunctival hemorrhage, evidence of increased intraorbital pressure. No septal hematoma visualized on exam. Pain on palpation to the nasal bone and the right maxilla. Denies pain to the left maxilla. Denies dental pain. No lesions or open areas noted inside the mouth. Gait normal. Coordination and strength tested in upper and lower extremities WNL. Pronator drift not present. No hemotympanum. Given the PE findings, will refer her to ENT for evaluation. No signs on PE warranting immediate referral. She is given Doxycycline d/t a cillin allergy. She is OK for discharge and all paperwork from independent living is filled out for patient. - Differential Diagnoses Differential Diagnoses: Contusion, Fracture - Diagnoses Provider Diagnoses: Nasal fracture Discharge - Discharge Plan Condition: Stable Disposition: HOME Prescriptions: DOXYcycline CAP(*) [DOXYcycline 100MG CAP(*)] 100 mg PO BID #10 cap Patient Education Materials: Facial Fracture (ED) Referrals: Iain Gaytan MD [Primary Care Provider] - Dann Nicholson MD [Medical Doctor] - Additional Instructions: Please follow up with ENT. Call today or tomorrow for appt Augmentin prescribed to you. First dose given in ED. Take second dose this evening before bed. Begin tomorrow twice per day. Images - Images Head: 1 - swelling with ecchmosis
== END 2017-03-18 15:07 | disposition home or self-care (01) ==
LOC: ED 13:32
DX: S02.2XXA Fracture of nasal bones, initial encounter for closed fracture (principal); W18.40XA Slipping, tripping and stumbling without falling, unspecified, initial encounter; Y93.9 Activity, unspecified; Y92.89 Other specified places as the place of occurrence of the external cause; F17.210 Nicotine dependence, cigarettes, uncomplicated
CPT/HCPCS: 70450; 70486; 99282; A9270-GY

== ENCOUNTER 2017-05-15 18:54 | Observation (INO) | payer MEDICARE ==
[2017-05-15] MEDS ORDERED: Albuterol/Ipratropium NEB.SOL* Albuterol 2.5 MG/Ipratropium 0.5 MG 3 ML INH ONE (19:44)
[2017-05-15] MEDS ORDERED: methylPREDNISolone 125 MG* 2 ML VIAL IV ONE (19:44)
[2017-05-15] MEDS ORDERED: Albuterol 2.5 MG/3 ML NEB.SOL* (0.083%) INH ONE (19:44)
[2017-05-15] MEDS ORDERED: NS 0.9% 500 ML* 500 ML IV ONE (19:47)
[2017-05-15] MEDS ORDERED: Azithromycin IV(*) 500 MG in NS 0.9% 250 ML* 250 ML IVPB ONE (20:21)
[2017-05-15] MEDS ORDERED: cefTRIAXone(*) 1 GM in NS 0.9% 50 ML* 50 ML IVPB ONE (20:21)
[2017-05-15 20:23] LABS: ABS Basophils 0 10^3/ul (0-0.2); ABS Eosinophils 0 10^3/ul (0-0.6); ABS Lymphocytes 0.7 10^3/ul (1.0-4.8); ABS Monocytes 0.4 10^3/ul (0-0.8); ABS Neutrophils 3.2 10^3/ul (1.5-7.7); ABS Nucleated RBC 0 10^3/ul; Eosinophil % 0.3 % (0-6); Hematocrit 41 % (35-47); Lymphocyte % 15.5 % (25-47); Mean Corpuscular HGB Conc 35 g/dl (31-36); Mean Corpuscular Hemoglobin 30 pg (27-31); Mean Corpuscular Volume 88 fL (80-97); Mean Platelet Volume 8 um3 (7.4-10.4); Nucleated Red Blood Cells % 0; Platelet Count 183 10^3/ul (150-450); Red Blood Count 4.64 10^6/ul (4.0-5.4); Red Cell Distribution Width 14 % (10.5-15); White Blood Count 4.4 10^3/ul (3.5-10.8)
[2017-05-15 20:37] LABS: EGFR Non-African American 123.8 (>60)
--- NOTE | 2017-05-15 20:39 | RAD ---
INDICATION: Cough and shortness of breath. COMPARISON: There are no prior studies available for comparison. TECHNIQUE: A portable view of the chest was obtained. FINDINGS: Cardiac and mediastinal contours appear to be within normal limits. The lungs are underinflated and clear. There is blunting of the left costophrenic angle possibly indicating a small pleural effusion. IMPRESSION: POSSIBLE SMALL LEFT PLEURAL EFFUSION.
[2017-05-15] MEDS ORDERED: Levofloxacin 500 MG IVPREMIX(* 500 MG/100 ML BAG IVPB ONE (21:31)
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
[2017-05-15] MEDS ORDERED: CMCS: Melatonin (NF) 3 MG TAB PO PRN (22:54)
[2017-05-15] MEDS ORDERED: Acetaminophen TAB* 325 MG PO PRN (22:54)
[2017-05-15] MEDS ORDERED: Ondansetron INJ* 2 MG/ML VIAL IV PRN (22:54)
[2017-05-15] MEDS ORDERED: Benzonatate CAP* 100 MG PO PRN (22:56)
[2017-05-15] MEDS ORDERED: NS 0.9% 1000 ML* 1,000 ML IV SCH (23:00)
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
[2017-05-15] MEDS ORDERED: Albuterol 2.5 MG/3 ML NEB.SOL* (0.083%) INH PRN (23:39)
[2017-05-16] MEDS ORDERED: Albuterol 2.5 MG/3 ML NEB.SOL* (0.083%) INH SCH ×3 (01:00→13:00)
[2017-05-16] MEDS ORDERED: Levothyroxine TAB* 75 MCG TAB PO SCH (06:00)
[2017-05-16] MEDS ORDERED: Heparin VIAL(*) 5000 UNITS/ML VIAL (FIVE THOUSAND) SUBCUT SCH (06:00)
[2017-05-16] MEDS ORDERED: methylPREDNISolone SOD 40 MG* 1 ML VIAL IV SCH (06:00)
[2017-05-16] MEDS ORDERED: Omeprazole CAP* 20 MG PO SCH (06:00)
[2017-05-16 08:27] LABS: Hematocrit 41 % (35-47); Hemoglobin 13.8 g/dl (12.0-16.0); Mean Corpuscular HGB Conc 34 g/dl (31-36); Mean Corpuscular Hemoglobin 30 pg (27-31); Mean Corpuscular Volume 89 fL (80-97); Mean Platelet Volume 8 um3 (7.4-10.4); Platelet Count 165 10^3/ul (150-450); Red Blood Count 4.58 10^6/ul (4.0-5.4); Red Cell Distribution Width 14 % (10.5-15)
[2017-05-16 08:42] LABS: EGFR Non-African American 139.8 (>60)
[2017-05-16] MEDS ORDERED: carBAMazepine ER TAB(*) 200 MG PO SCH (09:00)
[2017-05-16] MEDS ORDERED: Docusate CAP* 100 MG PO SCH (09:00)
[2017-05-16] MEDS ORDERED: Tiotropium CAP.INH* CAP.INH/18 MCG (USE ORDER SET !) INH SCH (09:00)
[2017-05-16] MEDS ORDERED: Lacosamide TAB* 100 MG TAB PO SCH (09:00)
[2017-05-16] MEDS ORDERED: guaiFENesin ER TAB 600 MG PO SCH (09:00)
[2017-05-16] MEDS ORDERED: Spiriva Inhaler DEVICE* 1 EACH DEVICE INH ONE (09:00)
[2017-05-16] MEDS ORDERED: Sertraline* 50 MG TAB PO SCH (09:00)
[2017-05-16] MEDS ORDERED: Mometasone/Formoter 200/5 MDI INH SCH (09:00)
[2017-05-16] MEDS ORDERED: levETIRAcetam TAB* 500 MG PO SCH ×2 (09:00→18:00)
[2017-05-16 09:59] VITALS: BP 107/87
--- NOTE | 2017-05-16 13:22 | DS ---
CC: Dr. Gaytan; Dr. Guy DISCHARGE SUMMARY: DATE OF ADMISSION: DATE OF DISCHARGE: 05/16/17 HISTORY: This 67-year-old woman presented with cough and shortness of breath. The history was detai led in the admission note. She was felt to have an exacerbation of COPD with acute bronchitis. She was given azithromycin and ceftriaxone. I believe she had a dose of levofloxacin in the emergenc y room. She was given intravenous glucocorticoids as well. She did very well in the hospital. She was nearly asymptomatic on the day of discharge. Her lung ex am was nearly normal, possibly slightly diminished breath sounds but no rales, rhonchi, or wheezing. Her appetite was good. She seemed pretty much at her baseline. She will finish 7 days of cephalosporin with cefuroxime. She will finish her 5-day course of azithro mycin. She will be on a tapering dose of prednisone. All other medications will be the same. She was advised to quit smoking and avoid second-hand smoke. FINAL DIAGNOSES: 1. Chronic obstructive pulmonary disease exacerbation. 2. Tobacco use disorder. 3. Seizure disorder. 4. Dementia. DISCHARGE MEDICATIONS: 1. Azithromycin 250 mg daily for 4 days. 2. Cefuroxime 500 mg b.i.d. for 6 days. 3. Prednisone 10 mg taper from 4-0 over 4 days. 4. Levothyroxine 75 mcg daily. 5. Sertraline 50 mg daily. 6. Acetaminophen 325 mg every 4 hours p.r.n. 7. Benzonatate 100 mg t.i.d. p.r.n. 8. Carbamazepine XR 200 mg t.i.d. 9. Levetiracetam 1500 mg h.s. and 1000 mg a.m. 10. Loperamide 2 mg b.i.d. p.r.n. 11. Multivitamin with minerals daily. 12. Lacosamide 100 mg daily. [id number]/[facility] #: [id number]
[2017-05-16] MEDS ORDERED: Azithromycin TAB* 250 MG PO SCH (20:00)
[2017-05-16] MEDS ORDERED: cefTRIAXone VIAL(*) 1,000 MG in NS 0.9% 50 ML* 50 ML IVPB SCH (20:00)
== END 2017-05-16 11:45 ==
LOC: ED 18:54 → MED 22:53
PROVIDERS: ADMIT Hospitalist; ATTEND Internal Medicine
DX: J44.1 Chronic obstructive pulmonary disease with (acute) exacerbation (principal); F17.210 Nicotine dependence, cigarettes, uncomplicated; G40.909 Epilepsy, unspecified, not intractable, without status epilepticus; F03.90 Unspecified dementia, unspecified severity, without behavioral disturbance, psychotic disturbance, mood disturbance, and anxiety; J40 Bronchitis, not specified as acute or chronic; R50.9 Fever, unspecified; R53.83 Other fatigue; R06.02 Shortness of breath
CPT/HCPCS: 36415; 71045; 80048; 80053; 80177; 83605; 83735; 83880; 85025; 85027; 87040; 87502; 87641; 93005; 94640; 94760; 96374; 99285; A9270-GY; G0378; J0456; J0696; J1644; J1956; J2920; J2930

== ENCOUNTER 2018-11-19 08:26 | Emergency (ER) | payer MEDICARE ==
[2018-11-19] MEDS ORDERED: NS 0.9% 1000 ML** 1,000 ML IV ONE (08:33)
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
[2018-11-19 08:58] LABS: ABS Eosinophils 0.1 10^3/ul (0-0.6); ABS Lymphocytes 0.7 10^3/ul (1.0-4.8); ABS Monocytes 0.4 10^3/ul (0-0.8); ABS Neutrophils 3.1 10^3/ul (1.5-7.7); Eosinophil % 3.2 %; Hematocrit 41 % (35-47); Hemoglobin 13.5 g/dL (12.0-16.0); Lymphocyte % 16.7 %; Mean Corpuscular HGB Conc 33 g/dL (31-36); Mean Corpuscular Hemoglobin 29 pg (27-31); Mean Corpuscular Volume 86 fL (80-97); Mean Platelet Volume 7.9 fL (7.4-10.4); Nucleated Red Blood Cells % 0.1; Platelet Count 218 10^3/uL (150-450); Red Blood Count 4.69 10^6 /uL (3.70-4.87); Red Cell Distribution Width 14 % (10-15); White Blood Count 4.4 10^3/uL (3.5-10.8)
[2018-11-19 09:10] LABS: Activated Partial Thrombo Time 39.4 seconds (26.0-38.0); INR 1.04 (0.82-1.09)
[2018-11-19 09:15] LABS: Albumin/Globulin Ratio 1.3 (1-3); BUN/Creatinine Ratio 14.6 (8-20); Calcium 8.8 mg/dL (8.6-10.3); EGFR African American 156.6 (>60); EGFR Non-African American 129.4 (>60); Globulin 3.1 g/dL (2-4); HDL Cholesterol 51.4 mg/dL; Potassium 3.9 mmol/L (3.5-5.0); Total Bilirubin 0.3 mg/dL (0.2-1.0); Total Protein 7.1 g/dL (6.4-8.9)
--- OUTSIDE RECORDS SUMMARY | 2018-11-19 09:50 | XMS REPORT | Continuity of Care Document ---
:1950 External Reference #:[id number] Author Name Dann Berger M.D. Address [address] [place] [address] Care Team Providers Name Role Phone Iain Gaytan M.D. Primary Care Physician Unavailable Payers Date Identification Numbers Payment Provider Subscriber Policy Number: [id number] [facility] Dorothea Cardoza Group Number: [id number] [address] [id number] PayID: [id number] [place] [address] Problems Active Problems Provider Date Epilepsy Onset: Anxiety Onset: Hypothyroidism Onset: Posttraumatic stress disorder Onset: Bilateral age-related nonexudative macular Dann Berger M.D. Onset: 10/30 degeneration Nuclear senile cataract Dann Berger M.D. Onset: 10/16/2014 Nonexudative age-related macular degeneration Dann Beregr M.D. Onset: Family History Date Family Member(s) Observation Comments Father Cataract Mother No Current Problems Social History Type Date Description Comments Sex Unknown Marital Status Legal Status: Never Work Status Disabled ETOH Use Denies alcohol use Recreational Drug Use Denies Drug Use Tobacco Use Start: Unknown End: Patient is a former smoker Smoking Status Reviewed: 11/09/18 Patient is a former smoker Allergies, Adverse Reactions, Alerts Active Allergies Reaction Severity Comments Date Amoxicillin Urticaria 10/16/2014 Ampicillin Urticaria 10/16/2014 Medications Active Medications SIG Qnty Indications Ordering Provider Date Preservision Areds 2 take one capsule 60caps Dann Berger, 10/15/2014 by mouth twice a M.D. Areds 2 Capsules day Levothyroxine Sodium every day Unknown 25mcg Tablets Sertraline HCL Unknown 50mg Tablets Vimpat Unknown Carbamazepine three times a Unknown 200mg day Tablets Acetaminophen every 4 hours Unknown 325mg Tablets Levetiracetam 2 pills in the Unknown 500mg Am - 3 pills in Tablets the evening History Medications Keppra Unknown - 10/22/2015 1000mg Tablets Meloxicam every day Unknown - 10/22/2015 7.5mg Tablets Benzonatate three times a day Unknown - 11/08/2018 100mg Capsules Procedures Date Code Description Status 11/02/2017 51918 Scanning Computerized Opthalmic Diagnostic Posterior Seg Completed Retina 11/02/2017 52667 Est Patient Comprehensive Exam Completed 10/30/2016 82512 Scanning Computerized Opthalmic Diagnostic Posterior Seg Completed Retina 10/30/2016 07947 Est Patient Comprehensive Exam Completed 10/23/2015 23870 Scanning Computerized Opthalmic Diagnostic Posterior Seg Completed Retina 10/23/2015 93618 Est Patient Comprehensive Exam Completed 09/03/2015 78425 Determination Of Refractive State Completed 10/16/2014 86105 Scanning Computerized Opthalmic Diagnostic Posterior Seg Completed Retina 10/16/2014 50917 Est Patient Comprehensive Exam Completed 10/13/2013 42011 Est Patient Comprehensive Exam Completed 10/13/2013 70825 Fundus Photography With Interpretation And Report Completed 10/04/2012 30181 Fundus Photography With Interpretation And Report Completed 10/04/2012 80743 Determination Of Refractive State Completed 10/04/2012 50416 Est Patient Comprehensive Exam Completed 09/06/2010 17762 Determination Of Refractive State Completed 09/06/2010 26761 Est Patient Comprehensive Exam Completed 08/08/2008 58382 Determination Of Refractive State Completed 08/08/2008 46333 Est Patient Comprehensive Exam Completed 06/21/2004 26667 Determination Of Refractive State Completed 06/21/2004 23823 Est Patient Comprehensive Exam Completed Plan of Treatment 11/09/2018 - Dann Berger M.D.H35.3132 Nonexudative age-related macular degeneration, bilateral, intermediate dry stageComments:Smoking can increase the risk of developing or worsening any eye related disease, as well as affect your overall health. If you are a smoker, we strongly recommend that you quit.If you are not a smoker, we strongly recommend that you do not start. You have Macular Degeneration. Check your Amsler Grid, with each eye separately, and take the AREDS II formula vitamins. If you notice any changes in your vision , please call the office and schedule an appointment to see any of the doctors here.Follow up:1 Year Follow Up OCT MAC You can expect to have your eyes dilated at your next visit. If Dr. Berger orders any additional testing, it may require extra time. We recommend that you bring sunglasses, as dilation drops often make you light sensitive until they wear off. We always recommend you bring someone to drive you home if you are uncomfortable driving with your eyes dilated. If you have any questions before your next visit, feel free to call our office at .H25.13 Age-related nuclear cataract, bilateralComments:You have been diagnosed with cataracts. If you are happy with your vision as it is now, then we willsee you at your next scheduled appointment. If you feel like your vision is getting worse before your scheduled appointment, please call [facility] at [phone].
[2018-11-19 10:09] LABS: Urine Appearance Clear; Urine Bilirubin Negative (Negative); Urine Blood Negative (Negative); Urine Color Straw; Urine Glucose Negative (Negative); Urine Ketones Negative (Negative); Urine Nitrite Negative (Negative); Urine Protein Negative (Negative); Urine Specific Gravity 1.005 (1.010-1.030); Urine Urobilinogen Negative (Negative)
[2018-11-19] MEDS ORDERED: Tetan/Diph/Pertus SYR(Tdap)* 0.5 ML SYR(BOOSTRIX) use SYR contains LATEX IM ONE (11:47)
[2018-11-19 12:11] LABS: Hepatitis C Antibody Negative (Negative)
[2018-11-19 12:35] VITALS: BP 156/63
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
== END 2018-11-19 13:30 | disposition home or self-care (01) ==
LOC: ED 08:26
DX: R22.0 Localized swelling, mass and lump, head (principal); G93.89 Other specified disorders of brain; W19.XXXA Unspecified fall, initial encounter; Y92.9 Unspecified place or not applicable; Z23 Encounter for immunization; E07.9 Disorder of thyroid, unspecified; F17.210 Nicotine dependence, cigarettes, uncomplicated; Z88.0 Allergy status to penicillin; Z88.8 Allergy status to other drugs, medicaments and biological substances; Z79.899 Other long term (current) drug therapy
CPT/HCPCS: 36415; 70450; 70486; 71045; 80053; 80061; 81003; 83605; 84484; 85025; 85610; 85730; 86803; 90471; 90715; 93005; 95816; 96360; 96361; 99285

== ENCOUNTER 2019-01-14 08:23 | Emergency (ER) | payer MEDICARE ==
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
[2019-01-14 08:59] LABS: ABS Eosinophils 0.2 10^3/ul (0-0.6); ABS Lymphocytes 0.9 10^3/ul (1.0-4.8); ABS Monocytes 0.5 10^3/ul (0-0.8); Eosinophil % 2.9 %; Hematocrit 40 % (35-47); Hemoglobin 13.4 g/dL (12.0-16.0); Lymphocyte % 16.2 %; Mean Corpuscular HGB Conc 34 g/dL (31-36); Mean Corpuscular Hemoglobin 29 pg (27-31); Mean Corpuscular Volume 86 fL (80-97); Platelet Count 238 10^3/uL (150-450); Red Blood Count 4.66 10^6 /uL (3.70-4.87); Red Cell Distribution Width 14 % (10-15); White Blood Count 5.7 10^3/uL (3.5-10.8)
[2019-01-14 09:05] LABS: INR 1.06 (0.82-1.09)
[2019-01-14 09:17] LABS: ALT 22 U/L (7-52); AST 17 U/L (13-39); Albumin 3.8 g/dL (3.2-5.2); Albumin/Globulin Ratio 1.4 (1-3); Alkaline Phosphatase 185 U/L (34-104); Anion Gap 4 mmol/L (2-11); BUN/Creatinine Ratio 14.3 (8-20); Blood Urea Nitrogen 8 mg/dL (6-24); CO2 Carbon Dioxide 28 mmol/L (22-32); Calcium 8.8 mg/dL (8.6-10.3); Chloride 103 mmol/L (101-111); EGFR African American 131.1 (>60); EGFR Non-African American 108.3 (>60); Globulin 2.8 g/dL (2-4); Glucose 106 mg/dL (70-100); Potassium 4.2 mmol/L (3.5-5.0); Sodium 135 mmol/L (135-145); Total Protein 6.6 g/dL (6.4-8.9)
[2019-01-14 09:53] LABS: Alcohol < 10 mg/dL (<10)
[2019-01-14 10:50] LABS: Urine Appearance Clear; Urine Bilirubin Negative (Negative); Urine Blood Negative (Negative); Urine Color Straw; Urine Glucose Negative (Negative); Urine Ketones Negative (Negative); Urine Nitrite Negative (Negative); Urine Protein Negative (Negative); Urine Specific Gravity 1.005 (1.010-1.030); Urine Urobilinogen Negative (Negative)
[2019-01-14 11:07] LABS: Urine Benzodiazepine Screen None Detected (None Detect); Urine Opiates Screen None Detected (None Detect)
[2019-01-14 11:26] LABS: TSH (Thyroid Stimulating Horm) 1.13 mcIU/mL (0.34-5.60)
[2019-01-14 11:38] VITALS: BP 128/58
[2019-01-15 23:37] LABS: Lacosamide 3.3 mcg/mL (1.0 - 10.0)
== END 2019-01-14 11:30 | disposition home or self-care (01) ==
LOC: ED 08:23
DX: G40.909 Epilepsy, unspecified, not intractable, without status epilepticus (principal); E03.9 Hypothyroidism, unspecified; Z79.899 Other long term (current) drug therapy; Z85.3 Personal history of malignant neoplasm of breast; F17.210 Nicotine dependence, cigarettes, uncomplicated
CPT/HCPCS: 36415; 71045; 80053; 80177; 80299; 80307; 80320; 81003; 83605; 83735; 84443; 85025; 85610; 93005; 99283; G0480

== ENCOUNTER 2019-01-14 12:20 | Emergency (ER) | payer MEDICARE ==
[2019-01-14] MEDS ORDERED: LaCOSAMide VIAL * 200 MG/20 ML VIAL IV ONE (12:26)
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
[2019-01-14] MEDS ORDERED: LaCOSAMide VIAL * 100 MG in NS 0.9% 50 ML* 50 ML IVPB ONE (13:00)
[2019-01-14] MEDS ORDERED: LaCOSAMide TAB* 150 MG TAB PO ONE (13:49)
[2019-01-14] MEDS ORDERED: levETIRAcetam TAB* 500 MG PO ONE (13:49)
[2019-01-14 14:39] VITALS: BP 134/72
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
== END 2019-01-14 14:32 | disposition home or self-care (01) ==
LOC: ED 12:20
DX: R56.9 Unspecified convulsions (principal); Z88.0 Allergy status to penicillin; E03.9 Hypothyroidism, unspecified; Z85.3 Personal history of malignant neoplasm of breast; F17.210 Nicotine dependence, cigarettes, uncomplicated
CPT/HCPCS: 96365; 99281; A9270-GY

== ENCOUNTER 2019-07-25 09:37 | Emergency (ER) | payer MEDICARE ==
--- OUTSIDE RECORDS SUMMARY | 2019-07-25 10:10 | XMS REPORT | Continuity of Care Document ---
:1950 External Reference #:[id number] Author Name Juno Hou Address [address] [place] [address] Care Team Providers Name Role Phone LianeviancaMegan (Levels Direct) - Care Team Information Baseboard Heating Installer [phone] Surgery of the Hand Visiting Nurse Services - Home Health Care Team Information Baseboard Heating Installer Roula Paula - Production Crew Supervisor Care Team Information Baseboard Heating Installer [facility] Physical Care Team Information Baseboard Heating Installer [phone] Therapy - Physical Therapy Problems Active Problems Provider Date Hypothyroidism Iain Gaytan M.D. Onset: 10/29/2007 Headache Iain Gatyan M.D. Onset: 10/29/2007 Seizure Iain Gaytan M.D. Onset: 10/29/2007 Anxiety state Iain Gaytan M.D. Onset: 04/19/2010 Acute sinusitis Iain Gaytan M.D. Onset: 01/20/2011 Contusion of hand Iain Gaytan M.D. Onset: 01/20/2011 Impacted cerumen Iain Gaytan M.D. Onset: 02/21/2011 Low back pain Iain Gaytan M.D. Onset: 07/29/2011 Benign neoplasm of skin Iain Gaytan M.D. Onset: 09/11/2011 Allergic rhinitis Iain Gaytan M.D. Onset: 10/31/2011 Contusion of back Iain Gaytan M.D. Onset: 10/31/2011 Contusion of face, scalp and neck, excluding Iain Gaytan M.D. Onset: eye(s) Abrasion and/or friction burn of face without Iain Gaytan M.D. Onset: infection Closed fracture of carpal bone Iain Gaytan M.D. Onset: 08/26/2012 Contusion of wrist Iain Gaytan M.D. Onset: 08/26/2012 Contusion of chest Iain Gaytan M.D. Onset: 11/01/2012 Chalazion Iain Gaytan M.D. Onset: 04/29/2013 Obstructive sleep apnea syndrome Iain Gyatan M.D. Onset: 09/06/2013 Tobacco user Iain Gaytan M.D. Onset: 10/24/2013 Plantar fascial fibromatosis Iain Gaytan M.D. Onset: 08/29/2014 Generalized anxiety disorder Iain Gaytan M.D. 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 Onset: 09/03/2015 Abrasion and/or friction burn of lower limb Iain Gaytan M.D. Onset: 09/02 without infection Open wound of scalp without complication Iain Gaytan M.D. Onset: 2015 Laceration without foreign body of other part Iain Gaytan M.D. Onset: 07/2016 of head, initial encounter Bronchitis Iain Gaytan M.D. Onset: 05/25/2017 Candidal vulvovaginitis Iain Gaytan M.D. Onset: 05/25/2017 Chronic obstructive lung disease Iain Gaytan M.D. Onset: 07/14/2017 Pain in limb Iain Gaytan M.D. Onset: 07/30/2018 Wrist joint pain Iain Gaytan M.D. Onset: 07/30/2018 Dyspnea on exertion Iain Gaytan M.D. Onset: 04/01/2019 Dyspnea on exertion Iain Gaytan M.D. Onset: 06/03/2019 Other hyperlipidemia Iain Gaytan M.D. Onset: 06/03/2019 Social History Type Date Description Comments Sex Unknown Tobacco Use Start: Unknown End: Unknown Former Cigarette Smoker 1 Pack Daily Smoking Status Reviewed: 01/18/19 Former Cigarette Smoker 1 Pack Daily ETOH Use Has consumed alcohol in the past Tobacco Use Start: Unknown End: Unknown Patient is a former smoker QUIT 05/31 Allergies, Adverse Reactions, Alerts Active Allergies Reaction Severity Comments Date Ampicill 08/03/1997 Amoxicillin 08/03/1997 Phenorone 10/22/2007 Phenacemide 01/18/2019 Medications Active Medications SIG Qnty Indications Ordering Provider Date Azithromycin 2 po today and 1 6tabs J06.9 BENJAMIN SimP 06/23/2019 250mg po x 4 days Tablets Benzonatate take 1 capsule by 30caps J06.9 ARYAN Sim 06/23/2019 100mg mouth two times Capsules daily as needed for cough Atorvastatin Calcium take 1 tablet by 90tabs E78.49 Iain Gaytan, 2019 mouth at bedtime M.D. 10mg Tablets for cholesterol Hearing Eval pt needs to have a H91.09 Iain Gaytan, 06/03/2019 hearing evaluation M.D. for hearing loss Walker With Wheels/ use both in the 1units R29.6 Iain Gaytan, 2018 Brakes And Seat home and out of M.D. the home dx: recurrent falls Tylenol 1 by mouth every 4 100tabs Rani 09/25/2016 325mg Tablets hours as needed ARYAN Yañez pain or fever over 100 Areds Eye Vitamins 1 po bid Family Medicine 01/13/2014 [facility] Sertraline HCL take one tablet by 30tabs Iain Gaytan, 04/19/2012 50mg mouth every day M.D. Tablets for anxiety Synthroid take one tablet by 30tabs Iain Gaytan, 04/08/2011 75mcg mouth every day M.D. Tablets Levetiracetam 3 po bid Unknown 500mg Tablets Imodium A-D 1 by mouth twice a 60tabs Iain Gaytan, 2mg day as needed for M.D. Tablets diarrhea Vimpat bid Unknown 150mg Tablets Medications Administered in Office Medication SIG Qnty Indications Ordering Provider Date TB Intradermal Test Iain Gaytan M.D. 03/16/2017 Injection Immunizations CPT Code Status Date Vaccine Lot # [id number] Given 02/11/2019 Influenza Virus Vaccine, Recombinant Dna, [id number] [place] [address] Given 03/31/2017 Pneumococcal Immunization [id number] 86894 Given 01/06/2017 Influenza Vac, Quadrivalent, [place] [address] Given 06/17/2016 Tdap Tetanus, W Pertussis [id number] 46166 Given 03/02/2015 Pneumococcal Conjugate Vacc-13 [id number] 38440 Given 01/18/2014 DO Not Use Split Influenza Virus Vaccine 69307 Given 03/05/1999 DO Not Use Split Influenza Virus Vaccine 74942 Given 02/01/1998 Influenza Immunization Vital Signs Date Vital Result Comment 07/01/2019 11:13am BP Systolic 118 mmHg BP Diastolic 78 mmHg Heart Rate 68 /min Body Temperature 97.8 F Respiratory Rate 18 /min Weight 199.00 lb 06/23/2019 4:13pm BP Systolic 118 mmHg BP Diastolic 62 mmHg Heart Rate 80 /min Body Temperature 97.7 F Respiratory Rate 24 /min Height 59 inches 4'11" Results Test Acquired Date Facility Test Result H/L Range Note Flu A&B (Fma) 06/23/2019 family medicine Influenza A neg (607)- - Influenza B neg Comprehensive Metabolic 04/01/2019 Miramontes Tracey([facility] [place]) Sodium 142 mEq/L 134-149 Prof Potassium 5.0 mEq/L 3.6-5.5 Chloride 98 mEq/L 94-112 Carbon Dioxide 28 mEq/L 21-32 Glucose 95 mg/dL 70-105 BUN 11 mg/dL 6-26 Creatinine 0.6 mg/dL 0.6-1.4 BUN/Creat Ratio 18.3 CALC 8.0-36.0 Calcium 10.2 mg/dL 8.6-10.2 Total Protein 8.0 g/dL 6.4-8.3 Albumin 4.6 g/dL 3.8-5.5 Globulin 3.4 g/dL 2.0-4.8 A/G Ratio 1.4 CALC 0.6-2.3 Alk. Phosphatase 178 U/L High 30-110 1 Alt (SGPT) 26 U/L 7-35 Ast (Sgot) 19 U/L 5-34 Total Bilirubin 0.2 mg/dL 0.2-1.3 GFR Non- >60 ml/min/1.73m^ >=60 GFR >60 ml/min/1.73m^ >=60 Laboratory test finding 04/01/2019 Miramontes Tracey([facility]) TSH 0.74 mIU/L 0.50-6.00 Free T4 1.14 ng/dL 0.75-1.54 Lipid Profile 04/01/2019 Miramontes Tracey([facility]) Cholesterol 213 mg/dL High 120-200 Triglycerides 226 mg/dL High 30-200 HDL Cholesterol 43 mg/dL 30-85 LDL (Calculated) 125 CALC 0-129 VLDL Cholesterol 45 mg/dL 0-50 HDL Risk Factor 5.0 CALC High 0.0-4.4 CBC Electronic Fma 04/01/2019 Kulwinder Tracey([facility]) WBC 6.0 x10^3/UL 4.0- 10.0 RBC 5.13 x10^6/UL 3.93-6.00 HGB 14.2 g/dL 12.0-17.0 HCT 44 % 35-50 MCV 86.0 fL 80.0-95.0 MCH 27.7 pg 25.6-32.2 MCHC 32.2 g/dL 32.2-36.0 RDW-CV 15.0 % High 11.6-14.4 PLT 299 x10^3/UL 163-400 MPV 11.5 fL 9.4-12.4 Vahe# 3.71 x10^3/UL 1.56-6.13 Lymph# 1.39 x10^3/UL 1.18-3.74 [place]# 0.66 x10^3/UL 0.24-0.82 Eos # 0.2 x10^3/UL 0.0-0.5 Baso # 0.04 x10^3/UL 0.01-0.08 [place]he% 61.5 % 34.0-70.0 Lymph % 23.1 % 20.0-52.0 [place]% 10.9 % 5.0-12.0 Eos% 3.6 % 0.7-7.0 Baso% 0.7 % 0.1-1.2 CBC Auto Diff 01/14/2019 [facility] [place] [place] White Blood Count 5.7 10^3/uL Normal 3.5- 10.8 Red Blood Count 4.66 10^6/uL Normal 3.70-4.87 Hemoglobin 13.4 g/dL Normal 12.0-16.0 Hematocrit 40 % Normal 35-47 Mean Corpuscular Volume 86 fL Normal 80-97 Mean Corpuscular Hemoglobin 29 pg Normal 27-31 Mean Corpuscular HGB Conc 34 g/dL Normal 31-36 Red Cell Distribution Width 14 % Normal 10-15 Platelet Count 238 10^3/uL Normal 150-450 Mean Platelet Volume 8.0 fL Normal 7.4-10.4 Abs Neutrophils 4.0 10^3/uL Normal 1.5-7.7 Abs Lymphocytes 0.9 10^3/uL Low 1.0-4.8 Abs Monocytes 0.5 10^3/uL Normal 0-0.8 Abs Eosinophils 0.2 10^3/uL Normal 0-0.6 Abs Basophils 0.0 10^3/uL Normal 0-0.2 Abs Nucleated RBC 0.0 10^3/uL Granulocyte % 71.5 % Lymphocyte % 16.2 % Monocyte % 8.6 % Eosinophil % 2.9 % Basophil % 0.8 % Nucleated Red Blood Cells % 0.0 Laboratory test finding 01/14/2019 [facility] [place] [place] Lactic Acid 0.9 mmol/L Normal 0.5- 2.0 2 Inr/Protime 01/14/2019 [facility] [place] [place] Inr 1.06 Normal 0.82-1.09 3 Comp Metabolic Panel 01/14/2019 [facility] [place] [place] Sodium 135 mmol/L Normal 135-145 Potassium 4.2 mmol/L Normal 3.5-5.0 Chloride 103 mmol/L Normal 101-111 Co2 Carbon Dioxide 28 mmol/L Normal 22-32 Anion Gap 4 mmol/L Normal 2-11 Glucose 106 mg/dL High 70-100 Blood Urea Nitrogen 8 mg/dL Normal 6-24 Creatinine 0.56 mg/dL Normal 0.51-0.95 BUN/Creatinine Ratio 14.3 Normal 8-20 Calcium 8.8 mg/dL Normal 8.6-10.3 Total Protein 6.6 g/dL Normal 6.4-8.9 Albumin 3.8 g/dL Normal 3.2-5.2 Globulin 2.8 g/dL Normal 2-4 Albumin/Globulin Ratio 1.4 Normal 1-3 Total Bilirubin 0.40 mg/dL Normal 0.2-1.0 Alkaline Phosphatase 185 U/L High 34-104 Alt 22 U/L Normal 7-52 Ast 17 U/L Normal 13-39 Egfr Non- 108.3 >60 Egfr 131.1 >60 4 Laboratory test finding 01/14/2019 [facility] [place] [place] Magnesium 2.0 mg/dL Normal 1.9- 2.7 Alcohol < 10 mg/dL Normal <10 Urine Drug SCR ED 01/14/2019 [facility] [place] [place] Urine Amphetamine None Detected None Detect & Pain Clinic Screen Urine Barbiturates Screen None Detected None Detect Urine Benzodiazepine Screen None Detected None Detect Urine Cannabinoids Screen None Detected None Detect Urine Cocaine Screen None Detected None Detect Urine Opiates Screen None Detected None Detect Urine Phencyclidine Screen None Detected None Detect 5 Urinalysis Profile 01/14/2019 [facility] [place] [place] Urine Color Straw Urine Appearance Clear Urine Specific [place] 1.005 Low 1.010-1.030 Urine pH 8.0 Normal 5-9 Urine Urobilinogen Negative Negative Urine Ketones Negative Negative Urine Protein Negative Negative Urine Leukocytes Negative Negative Urine Blood Negative Negative Urine Nitrite Negative Negative Urine Bilirubin Negative Negative Urine Glucose Negative Negative Laboratory test 01/14/2019 [facility] [place] [place] TSH (Thyroid Stim 1.13 mcIU/mL Normal 0.34 -5.60 finding Horm) Levetiracetam (Keppra) 16.0 g/mL 6 Lacosamide 3.3 g/mL 1.0 - 10.0 7 1 consistent w/ previous results 2 [facility] Severe Sepsis and Septic Shock Management Bundle Measure requires all lactic acids initially measuring >2.0 mmol/L be repeated. 3 Standard intensity warfarin therapeutic range: 2.0-3.0 High intensity warfarin therapeutic range: 2.5-3.5 4 Because ethnic data is not always readily available, this report includes an eGFR for both -Americans and non- Americans. The National Kidney Disease Education Program (NKDEP) does not endorse the use of the MDRD equation for patients that are not between the ages of 18 and 70, are , have extremes of body size, muscle mass, or nutritional status, or are non- or non-. According to the National Kidney Foundation, irrespective of diagnosis, the stage of the disease is based on the level of kidney function: Stage Description GFR(mL/min/1.73 m(2)) 1 Kidney damage with normal or decreased GFR 90 2 Kidney damage with mild decrease in GFR 60-89 3 Moderate decrease in GFR 30-59 4 Severe decrease in GFR 15-29 5 Kidney failure <15 (or dialysis) 5 The urine specimen was tested at the listed cutoffs: Drug class test level (ng/mL) Amphetamines 500 Barbiturates 200 Benzodiazepine metabolites 200 Cocaine metabolites 150 Cannabinoids 50 Opiates 300 Pcp 25 Specimen was received without chain of custody. Results should be used for medical purposes only. 6 REFERENCE VALUE 12.0 - 46.0 ADDITIONAL INFORMATION This test was developed and its performance characteristics determined by [facility] in a manner consistent with CLIA requirements. This test has not been cleared or approved by the U.S. Food and Drug Administration. Test Performed by: [facility] [place] [address] Hydraulic Dredge Operator: Maciej Hale M.D. Ph.D.; CLIA# [id number] ADDITIONAL INFORMATION This test was developed and its performance characteristics determined by [facility] in a manner consistent with CLIA requirements. This test has not been cleared or approved by the U.S. Food and Drug Administration. Test Performed by: [facility] [place] [place] [address] Hydraulic Dredge Operator: Maciej Hale M.D. Ph.D.; CLIA# [id number] Procedures Date Code Description Status 04/01/2019 56175 Electrocardiogram Complete Completed 01/18/2019 34539 Remove Impacted Cerumen Completed 01/18/2019 23569 Remove Impacted Cerumen Completed 07/26/2018 [id number] Mammogram Completed 12/16/2016 [id number] Mammogram Completed 12/13/2015 [id number] Mammogram Completed 12/11/2014 [id number] Mammogram Completed 09/11/2014 [id number] Colonoscopy Completed 12/09/2013 [id number] Mammogram Completed 12/08/2012 [id number] Mammogram Completed 11/11/2012 [id number] Bone Mineral Density Test Completed 07/13/2009 [id number] Mammogram Completed 05/30/2008 [id number] Colonoscopy Completed 05/15/2008 [id number] Mammogram Completed 04/15/2006 [id number] Mammogram Completed Medical Devices Description No Information Available Encounters Type Date Location Provider Dx Diagnosis Office Visit 06/23/2019 [facility] Office ARYAN Sim J06.9 Acute upper 3:45p respiratory infection, unspecified Z12.31 Encntr screen mammogram for malignant neoplasm of breast Office Visit 06/03/2019 2:40p Main Office Iain Gaytan, R06.02 Shortness of M.D. 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 disorder G40.319 Generalized idiopathic epilepsy, intractable, w/o stat epi E03.8 Other specified hypothyroidism R29.6 Repeated falls G47.33 Obstructive sleep apnea (adult) (pediatric) Office Visit 02/11/2019 1:30p [facility] Office Jamaica Boland NP R05 Cough Z23 Encounter for immunization Office Visit 01/18/2019 10:45a Main Office Madeline G40.319 Generalized [place], Afnp-C idiopathic epilepsy, intractable, w/o stat epi H61.23 Impacted cerumen, bilateral Assessments Date Code Description Provider 07/01/2019 R05 Cough Bellnp-C 07/01/2019 R42 Dizziness and giddiness Bellnp-Marti 06/23/2019 J06.9 Acute upper respiratory infection, ARYAN Sim unspecified 06/23/2019 Z12.31 Encounter for screening mammogram for Elena Duran, DRESSING MACHINE OPERATOR malignant neoplasm of breast 06/03/2019 R06.02 Dyspnea on exertion Iain Gaytan M.D. 06/03/2019 J44.9 Chronic obstructive pulmonary disease, Iain Gaytan M.D. unspecified 06/03/2019 E78.49 Other hyperlipidemia Iain Gaytan M.D. 06/03/2019 G40.319 Generalized idiopathic epilepsy and Iain Gaytan M.D. epileptic syndromes, int 06/03/2019 R29.6 Repeated falls Iain Gaytan M.D. 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 04/01/2019 Z00.01 Adult health examination Iain Gaytan M.D. 04/01/2019 G40.319 Generalized idiopathic epilepsy and Iain Gaytan M.D. epileptic syndromes, int 04/01/2019 R29.6 Repeated falls Iain Gaytan M.D. 04/01/2019 F41.1 Generalized anxiety disorder Iain Gaytan M.D. 04/01/2019 E03.8 Other specified hypothyroidism Iain Gaytan M.D. 04/01/2019 G47.33 Obstructive sleep apnea (adult) Iain Gaytan M.D. (pediatric) 04/01/2019 R06.02 Dyspnea on exertion Iain Gaytan M.D. 04/01/2019 J44.9 Chronic obstructive pulmonary disease, Iain Gaytan M.D. unspecified 03/01/2019 F41.1 Generalized anxiety disorder Iain Gaytan M.D. 03/01/2019 G40.319 Generalized idiopathic epilepsy and Iain Gaytan M.D. epileptic syndromes, int 03/01/2019 E03.8 Other specified hypothyroidism Iain Gaytan M.D. 03/01/2019 R29.6 Repeated falls Iain Gaytan M.D. 03/01/2019 G47.33 Obstructive sleep apnea (adult) Iain Gaytan M.D. (pediatric) 02/11/2019 R05 Cough [place] Boland, CARY 02/11/2019 Z23 Encounter for immunization Jamaica Boland, CARY 01/18/2019 G40.319 Generalized idiopathic epilepsy and Juno Hou epileptic syndromes, intractable, without status epilepticus 01/18/2019 H61.23 Impacted cerumen, bilateral Juno Hou Plan of Treatment Future Appointment(s):10/03/2019 3:00 pm - Iain Gaytan M.D. at Main [id number]/01/2019 - Levi Hou-[id number] CoughFollow up:Followup:. ( Follow up)R42 Dizziness and giddinessAllComments:Medication Management Patient Understands medications she's taking? Yes No Are there Barriers to Adherence? Yes No Has the patient been asked about herbal supplements and therapies, and OTC meds? Yes No Care Plan1. Patient has been queried about patient's goals/preferences and functional/lifestyle goals at relevant visits. If relevant, describe: na2. Treatment goals as explained to the patient: abovemanagement of current medical problemsroutine health maintenance anddisease prevention 3. Are there barriers to meeting treatment goals? Yes No If Yes, pleasedescribe:some communication problems between us , abraham and her son re routine f/u 4. Self-Management goals as described to the patient: Yes No and her son no changes in current management at this timeher son will reattempt to be in touch by portal routine ov 2 juanita with pcp Functional Status Description No Information Available Mental Status Description No Information Available Referrals Refer to Reason for Referral Status Appt [facility] Physical PHYSICAL THERAPY evaluate and Scheduled Therapy treat balance and mobility. please call pt to schedule an appointment. [address] [facility] [address] [place] [address] [phone]
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
[2019-07-25 10:56] LABS: ABS Eosinophils 0.2 10^3/ul (0-0.6); ABS Lymphocytes 1.1 10^3/ul (1.0-4.8); ABS Monocytes 0.5 10^3/ul (0-0.8); ABS Neutrophils 3.5 10^3/ul (1.5-7.7); Eosinophil % 4.4 %; Hematocrit 43 % (35-47); Hemoglobin 14.6 g/dL (12.0-16.0); Lymphocyte % 20.9 %; Mean Corpuscular HGB Conc 34 g/dL (31-36); Mean Corpuscular Hemoglobin 28 pg (27-31); Mean Corpuscular Volume 83 fL (80-97); Mean Platelet Volume 8.8 fL (7.4-10.4); Platelet Count 209 10^3/uL (150-450); Red Blood Count 5.15 10^6 /uL (3.70-4.87); Red Cell Distribution Width 15 % (10-15); White Blood Count 5.4 10^3/uL (3.5-10.8)
[2019-07-25 11:02] LABS: INR 1.11 (0.82-1.09)
[2019-07-25 11:07] LABS: Albumin 3.9 g/dL (3.2-5.2); Albumin/Globulin Ratio 1.2 (1-3); BUN/Creatinine Ratio 15.9 (8-20); Calcium 9.2 mg/dL (8.6-10.3); EGFR African American 114.1 (>60); EGFR Non-African American 94.3 (>60); Globulin 3.3 g/dL (2-4); Magnesium 1.9 mg/dL (1.9-2.7); Total Bilirubin 0.3 mg/dL (0.2-1.0); Total Protein 7.2 g/dL (6.4-8.9)
[2019-07-25 12:40] LABS: Urine Appearance Cloudy; Urine Bilirubin Negative (Negative); Urine Blood Negative (Negative); Urine Color Yellow; Urine Glucose Negative (Negative); Urine Ketones Negative (Negative); Urine Nitrite Negative (Negative); Urine Protein Negative (Negative); Urine Specific Gravity 1.018 (1.010-1.030); Urine Urobilinogen Negative (Negative)
[2019-07-25 12:50] LABS: Phosphorus 3.1 mg/dL (2.5-5.0)
[2019-07-25 14:37] VITALS: BP 122/64
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
[2019-07-26 15:07] LABS: Levetiracetam 48.3 mcg/mL
[2019-07-27 11:19] LABS: Lacosamide 9.7 mcg/mL (1.0 - 10.0)
== END 2019-07-25 14:36 | disposition home or self-care (01) ==
LOC: ED 09:37
DX: G40.909 Epilepsy, unspecified, not intractable, without status epilepticus (principal); G31.84 Mild cognitive impairment of uncertain or unknown etiology; E03.9 Hypothyroidism, unspecified; Z87.891 Personal history of nicotine dependence; Z88.0 Allergy status to penicillin; Z79.890 Hormone replacement therapy; Z79.899 Other long term (current) drug therapy
CPT/HCPCS: 36415; 80053; 80177; 80299; 81003; 83605; 83735; 84100; 85025; 85610; 93005; 99284